=== PATIENT | male | born 1990 | race Caucasian/White ===

== ENCOUNTER 2017-02-25 09:37 | Emergency (ER) | payer BC ==
[2017-02-25] MEDS ORDERED: SODIUM CHLORIDE 0.9% 1,000 ML IV ONE (10:08)
[2017-02-25] MEDS ORDERED: KETOROLAC 60 MG/2 ML VIAL IVP STA (10:08)
[2017-02-25] MEDS ORDERED: KETOROLAC 30 MG/ML VIAL ONE (10:09)
[2017-02-25] MEDS ORDERED: ONDANSETRON 4 MG/2 ML VIAL IVP STA (10:11)
[2017-02-25] MEDS ORDERED: ONDANSETRON 4 MG/2 ML VIAL ONE ×2 (10:11→11:21)
[2017-02-25] MEDS ORDERED: HYDROmorphone 1 MG/ML SYRINGE IVP STA (11:14)
[2017-02-25] MEDS ORDERED: HYDROmorphone 1 MG/ML SYRINGE ONE (11:20)
[2017-02-25] MEDS: ONDANSETRON 4 MG/2 ML VIAL IVP STA ×2 (11:28)
== END 2017-02-25 11:37 | disposition home or self-care (01) ==
DX: N13.2 Hydronephrosis with renal and ureteral calculous obstruction (principal); Z87.442 Personal history of urinary calculi; J45.909 Unspecified asthma, uncomplicated
CPT/HCPCS: 74176; 80053; 81003; 83690; 85025; 96361; 96374; 96375; 99284; J1170

== ENCOUNTER 2017-03-05 08:00 | Outpatient (CLI) | payer BC | END 2017-03-05 08:01 | disposition home or self-care (01) | DX: N20.0 Calculus of kidney (principal) ==

== ENCOUNTER 2017-03-05 08:00 | Outpatient (CLI) | payer BC | END 2017-03-05 08:01 | disposition home or self-care (01) | DX: N20.0 Calculus of kidney (principal) ==

== ENCOUNTER 2017-06-08 21:13 | Emergency (ER) | payer BC ==
[2017-06-08 21:21] VITALS: BP 122/76
--- NOTE | 2017-06-08 23:01 | ED Physician Documentation ---
PD HPI UPPER EXT INJURY - Stated complaint Stated Complaint: FINGER LAC - Chief complaint Chief Complaint: Laceration - History obtained from History obtained from: Patient - History of Present Illness Location: Left, Finger (thumb) Type of injury: Laceration Where injury occurred: Home Timing - onset: How many hours ago (approximately 1 hour [employer]) Timing - details: Abrupt onset Associated symptoms: No: Weakness, Numbness Similar symptoms before: Has not had sx before Recently seen: Not recently seen - Additonal information Additional information: sustained laceration on sharp edge of a metal can he was opening. patient sustained laceration to left thumb; he is right-hand dominant Review of Systems Skin: reports: Laceration (s) Neurologic: denies: Focal weakness, Numbness PD PAST MEDICAL HISTORY - Past Medical History Past Medical History: Yes Respiratory: Asthma - Past Surgical History Past Surgical History: No - Present Medications Home Medications: Ambulatory Orders Medication Instructions Recorded Confirmed No Known Home Medications [No 06/08/17 06/08/17 Known Home Medications] - Allergies Allergies/Adverse Reactions: Allergies Allergy/AdvReac Type Severity Reaction Status Date / Time No Known Drug Allergies Allergy Verified 06/08/17 21:21 - Social History Does the pt smoke?: No Smoking Status: Never smoker Does the pt drink ETOH?: Yes Does the pt have substance abuse?: No - Immunizations Immunizations are current?: No Immunizations: TDAP >10years/unknown - POLST Patient has POLST: No PD ED PE NORMAL - Vitals Vital signs reviewed: Yes - General General: Alert and oriented X 3, No acute distress, Well developed/nourished - Derm Derm: Normal color, Warm and dry - Extremities Extremities: Normal ROM s pain - Neuro Neuro: No motor deficit, No sensory deficit PD ED PE EXPANDED - Extremities ROBERT UE/Hands Visual: 1 - laceration (1 cm length) 2 - laceration (0.5 cm length) Results - Vitals Vitals: Vital Signs - 24 hr 06/08/17 06/08/17 21:18 23:53 Temperature 36.8 C Heart Rate 106 H 82 Respiratory 16 16 Rate Blood Pressure 122/76 O2 Saturation 97 99 Oxygen O2 Source Room air Procedures - Laceration (location) Finger left Palmar Length in cm: 1.5 Wound type: Linear ("V"-shaped) Neurovascular status: Sensory intact, Motor intact, Vascular intact Tendon involvement: Tendon intact Anesthesia: Lidocaine 1% Wound Preparation: Chlorhexadine, Irrigated copiously NS, Wound explored Skin layer closure: Nylon, Interrupted, Running, Size #-0 - enter number (5-0) Other: Patient tolerated well, No complications, Neurovascular intact, Dressing applied, Tetanus booster given Complexity: Simple PD MEDICAL DECISION MAKING - ED course Complexity details: considered differential, d/w patient Departure - Departure Disposition: 01 Home, Self Care Clinical Impression: Laceration Condition: Good Instructions: ED Laceration Hand Follow-Up: Mahendra Fleming MD [Primary Care Provider] - (1 week for suture removal) Discharge Date/Time: 06/08/17 23:53
[2017-06-08] MEDS ORDERED: TETANUS/DIPHTHERIA/PERTUSSIS 0.5 ML SYRINGE IM ONE ×2 (23:06→23:10)
[2017-06-08] MEDS ORDERED: LIDOCAINE 1% 50 ML MDV SUBQ STA (23:08)
[2017-06-08] MEDS ORDERED: LIDOCAINE 1% 2 ML VIAL ONE (23:10)
[2017-06-08] MEDS ORDERED: BACITRACIN OINT TOP STA (23:35)
[2017-06-08] MEDS ORDERED: BACITRACIN OINT TOP ONE (23:45)
== END 2017-06-08 23:53 | disposition home or self-care (01) ==
LOC: ED 21:13
DX: S61.012A Laceration without foreign body of left thumb without damage to nail, initial encounter (principal); W26.8XXA Contact with other sharp object(s), not elsewhere classified, initial encounter; Y92.010 Kitchen of single-family (private) house as the place of occurrence of the external cause; J45.909 Unspecified asthma, uncomplicated; Z23 Encounter for immunization
CPT/HCPCS: 12001; 90471; 90715; 99283; A9270

== ENCOUNTER 2021-11-09 14:57 | Emergency (ER) | payer BC, MEDICAID ==
--- NOTE | 2021-11-09 15:22 | ED Physician Documentation ---
PD HPI ABD PAIN - Stated complaint Stated Complaint: L ABD PX - Chief complaint Chief Complaint: Abd Pain - History obtained from History obtained from: Patient - History of Present Illness Timing - onset: How many hours ago (2) Timing - duration: Hours (2) Timing - details: Abrupt onset, Still present Quality: Aching, Sharp, Pain Location: LLQ (pain mostly left lower abd, not improved with position nor worsened with movement. Just steady pain.) Radiation: Left flank Improved by: No: Eating, Laying still, Vomiting Worsened by: No: Eating, Moving, Breathing, Palpation Associated symptoms: Nausea, Vomiting (few times when pain worst.). No: Fever, Diarrhea, Constipation, Dysuria Similar symptoms before: Diagnosis (he states feels same as 2 prior kidney stones in past several years (2016 and 2019). Passed both over 1-2 days. Did not need procedural interventions.) Recently seen: Not recently seen Review of Systems Constitutional: denies: Fever Nose: denies: Rhinorrhea / runny nose, Congestion Throat: denies: Sore throat Cardiac: denies: Chest pain / pressure Respiratory: denies: Cough GI: reports: Abdominal Pain, Nausea, Vomiting. denies: Constipation, Diarrhea : denies: Dysuria Skin: denies: Rash, Lesions Neurologic: denies: Focal weakness, Numbness, Near syncope PD PAST MEDICAL HISTORY - Past Medical History Respiratory: Asthma : Kidney stones - Past Surgical History Past Surgical History: No - Present Medications Home Medications: Ambulatory Orders Medication Instructions Recorded Confirmed Naproxen 500 mg PO BID #20 tab.sr 11/09/21 Ondansetron Odt [Zofran] 4 mg TL Q6H PRN #10 tablet 11/09/21 Oxycodone HCl/Acetaminophen 1 each PO Q6H PRN #15 tablet 11/09/21 [Percocet 7.5-325 mg Tablet] - Allergies Allergies/Adverse Reactions: Allergies Allergy/AdvReac Type Severity Reaction Status Date / Time No Known Drug Allergies Allergy Verified 06/08/17 21:21 - Social History Does the pt smoke?: No Smoking Status: Never smoker Does the pt drink ETOH?: Yes Does the pt have substance abuse?: No - Immunizations Immunizations are current?: No Immunizations: TDAP >10years/unknown - POLST Patient has POLST: No PD ED PE NORMAL - Vitals Vital signs reviewed: Yes - General General: Alert and oriented X 3, Well developed/nourished, Other (appears very uncomfortable and writhing on cart on initial exam. ) - Cardiac Cardiac: RRR, No murmur - Respiratory Respiratory: Clear bilaterally - Abdomen Abdomen: Normal bowel sounds, Soft, Non distended, No organomegaly, Other (minimally tender in area of pain. No guarding nor percussion tenderness. ) - Male Male : Deferred - Rectal Rectal: Deferred - Back Back: Other (some left flank tender to percussion. ) - Derm Derm: Normal color, Warm and dry - Neuro Neuro: Alert and oriented X 3, No motor deficit, Normal speech Results - Vitals Vitals: Vital Signs - 24 hr 11/09/21 11/09/21 15:00 17:01 Temperature 36.3 C L Heart Rate 80 72 Respiratory 18 19 Rate Blood Pressure 139/92 H 138/74 H O2 Saturation 99 100 Oxygen O2 Source Room air - Labs Labs: Laboratory Tests 11/09/21 11/09/21 11/09/21 15:04 15:39 15:39 WBC 18.1 H RBC 4.49 L Hgb 14.9 Hct 42.1 MCV 93.8 MCH 33.2 H MCHC 35.4 RDW 11.5 L Plt Count 256 MPV 9.6 Neut # (Auto) 15.7 H Lymph # (Auto) 1.3 L [place] # (Auto) 0.9 Eos # (Auto) 0.0 Baso # (Auto) 0.1 Absolute Nucleated RBC 0.00 Nucleated RBC % 0.0 Sodium 137 Potassium 3.4 L Chloride 103 Carbon Dioxide 24 Anion Gap 10.0 BUN 14 Creatinine 0.8 Estimated GFR (MDRD) 114 Glucose 105 H Calcium 8.9 Total Bilirubin 0.9 AST 17 ALT 17 Alkaline Phosphatase 46 Total Protein 7.2 Albumin 4.6 Globulin 2.6 Albumin/Globulin Ratio 1.8 Lipase 22 Urine Color YELLOW Urine Clarity CLEAR Urine pH 8.0 H Ur Specific [place] 1.020 Urine Protein NEGATIVE Urine Glucose (UA) NEGATIVE Urine Ketones NEGATIVE Urine Occult Blood TRACE-INTA Urine Nitrite NEGATIVE Urine Bilirubin NEGATIVE Urine Urobilinogen 0.2 (NORMAL) Ur Leukocyte Esterase NEGATIVE Ur Microscopic Review NOT INDICATED Urine Culture Comments NOT INDICATED PD MEDICAL DECISION MAKING - ED course Complexity details: re-evaluated patient (much improved with IV meds. ), considered differential (he states feels like other kidney stones. Shared decision to treat as kidney stone without imaging. Pain mostly lower abd so would be c/w lower ureteral location. ), d/w patient Departure - Departure Disposition: 01 Home, Self Care Clinical Impression: Left sided abdominal pain, Ureterolithiasis Condition: Stable Record reviewed to determine appropriate education?: Yes Instructions: ED Stone Renal W Colic Prescriptions: Naproxen 500 mg PO BID #20 tab.sr Oxycodone HCl/Acetaminophen [Percocet 7.5-325 mg Tablet] 1 each PO Q6H PRN #15 tablet PRN Reason: Pain Ondansetron Odt [Zofran] 4 mg TL Q6H PRN #10 tablet PRN Reason: Nausea / Vomiting Comments: Presume you are passing a kidney stone since it feels similar to your prior ones . The character of the pain would fit appropriately. Stay well-hydrated. Ondansetron if needed for nausea every 4-6 hours. Use an anti-inflammatory such as naproxen or ibuprofen 2-3 times daily for the next several days to week until improved. Add Tylenol every 4-6 hours for pain or Percocet if needed for worse pain. Recheck if not improving well over the next several days, if you are needing consistent pain medicines for pain control or if not resolved over the next 4 to 5 days. Return sooner if needed. I transmitted your prescriptions to [facility] in [place]. I am prescribing a short course of narcotic pain medication for you. These are potentially dangerous and addictive medications that should be used carefully. These medications may constipate you. Take an [id number] stool softener such as docusate twice daily with plenty of water while taking these medications. If you go 24 hours without a bowel movement, take [id number] MiraLAX, per package instructions. Do not drink or drive while taking these medications. If you received narcotic or sedating medications while in the emergency department do not drive for 24 hours. Store this medication in a safe, secure place and out of reach of children. It is a violation of federal law to give or sell this medication to another person or to use in a manner other than prescribed. The ED will not refill narcotic prescriptions, including prescriptions lost or stolen. You can dispose of unwanted medications at the [facility] office or at several pharmacies such as [facility]. Discharge Date/Time: 11/09/21 17:42
[2021-11-09] MEDS ORDERED: ONDANSETRON 4 MG/2 ML VIAL IVP STA (15:25)
[2021-11-09] MEDS ORDERED: HYDROmorphone 1 MG/ML CARPUJECT IVP STA ×2 (15:25→16:58)
[2021-11-09] MEDS ORDERED: KETOROLAC 30 MG/ML VIAL IVP STA (15:25)
[2021-11-09 15:27] LABS: BILIRUBIN,URINE NEGATIVE (NEGATIVE); GLUCOSE, URINE (UA) NEGATIVE (NEGATIVE); KETONES,URINE (UA) NEGATIVE (NEGATIVE); LEUKOCYTE ESTERASE, URINE NEGATIVE (NEGATIVE); NITRITE,URINE NEGATIVE (NEGATIVE); OCCULT BLOOD,URINE TRACE-INTA (NEGATIVE); PROTEIN,URINE NEGATIVE (NEGATIVE); UROBILINOGEN,URINE 0.2 (NORMAL) E.U./dL (NORMAL)
[2021-11-09 15:32] LABS: CLARITY,URINE CLEAR (CLEAR)
[2021-11-09 15:50] LABS: BASOPHILS # (AUTO) 0.1 10^3/uL (0.0-0.1); BASOPHILS % (AUTO) 0.4 %; EOSINOPHILS % (AUTO) 0.2 %; HCT - HEMATOCRIT 42.1 % (42.0-52.0); HGB - HEMOGLOBIN 14.9 g/dL (14.0-18.0); LYMPHOCYTES # (AUTO) 1.3 10^3/uL (1.5-3.5); MEAN CORPUSCULAR HEMOGLOBIN 33.2 pg (27.0-31.0); MEAN CORPUSCULAR HGB CONC 35.4 g/dL (32.0-36.0); MEAN CORPUSCULAR VOLUME 93.8 fL (80.0-94.0); MEAN PLATELET VOLUME 9.6 fL (7.4-11.4); MONOCYTES # (AUTO) 0.9 10^3/uL (0.0-1.0); MONOCYTES % (AUTO) 5.2 %; NEUTROPHILS # (AUTO) 15.7 10^3/uL (1.5-6.6); NEUTROPHILS % (AUTO) 86.8 %; PLT - PLATELET COUNT 256 10^3/uL (130-450); RED BLOOD COUNT 4.49 10^6/uL (4.70-6.10); RED CELL DISTRIBUTION WIDTH 11.5 % (12.0-15.0); WHITE BLOOD COUNT 18.1 x10^3/uL (4.8-10.8)
[2021-11-09 16:06] LABS: ALBUMIN 4.6 g/dL (3.2-5.5); ALBUMIN/GLOBULIN RATIO 1.8 (1.0-2.2); BILIRUBIN,TOTAL 0.9 mg/dL (0.2-1.0); CALCIUM 8.9 mg/dL (8.5-10.3); CREATININE 0.8 mg/dL (0.6-1.2); POTASSIUM 3.4 mmol/L (3.5-5.0); TOTAL PROTEIN 7.2 g/dL (6.7-8.2)
[2021-11-09] MEDS ORDERED: SODIUM CHLORIDE 0.9% 1,000 ML IV STA (16:12)
[2021-11-09] MEDS ORDERED: LIDOCAINE-MPF 2% 6 ML in SODIUM CHLORIDE 0.9% 50 ML IV STA (16:12)
[2021-11-09] MEDS ORDERED: oxyCODONE/ACET 5/325 Prepack 4 PO STA (16:59)
[2021-11-09] MEDS ORDERED: ONDANSETRON ODT 4 MG Prepack 2 TL PRN (16:59)
[2021-11-09 17:12] VITALS: BP 138/74
== END 2021-11-09 17:42 | disposition home or self-care (01) ==
LOC: ED 14:57
DX: N20.1 Calculus of ureter (principal)
CPT/HCPCS: 36415; 80053; 81003; 83690; 85025; 96374; 96375; 99283; J1170; J7040; 81001; 87086